=== PATIENT | female | born 1990 | race Two or more races ===

== ENCOUNTER 2018-07-24 13:53 | Emergency (ER) | payer MEDICAID ==
[~2018-07-24] VITALS: Ht 172.7 cm; Wt 90.7 kg
[2018-07-24 15:09] VITALS: BP 131/86
[2018-07-24] MEDS ORDERED: ACETAMINOPHEN 500 MG TAB PO ONE (15:30)
== END 2018-07-24 16:24 | disposition home or self-care (01) ==
LOC: ER 14:02
DX: O26.893 Other specified pregnancy related conditions, third trimester (principal); O24.913 Unspecified diabetes mellitus in pregnancy, third trimester; S30.0XXA Contusion of lower back and pelvis, initial encounter; Z3A.32 32 weeks gestation of pregnancy; V43.62XA Car passenger injured in collision with other type car in traffic accident, initial encounter; Y93.89 Activity, other specified; Y92.488 Other paved roadways as the place of occurrence of the external cause; Y99.8 Other external cause status; M53.3 Sacrococcygeal disorders, not elsewhere classified
CPT/HCPCS: 76805; 82962

== ENCOUNTER 2023-03-25 21:08 | Emergency (ER) | payer MEDICAID ==
[~2023-03-25] VITALS: Ht 165.1 cm; Wt 110.0 kg
[2023-03-25 21:11] VITALS: BP 120/68; PULSE 88; RESP 16; TEMP 98
[2023-03-25] MEDS ORDERED: EPIN0.1I11 IJ (22:52)
[2023-03-25 23:10] VITALS: O2SAT 98
== END 2023-03-25 23:10 | disposition home or self-care (01) ==
LOC: EDBD 21:08 → ER 21:08
DX: T78.40XA Allergy, unspecified, initial encounter (principal); T38.0X5A Adverse effect of glucocorticoids and synthetic analogues, initial encounter; Y92.89 Other specified places as the place of occurrence of the external cause

== ENCOUNTER 2023-10-26 17:34 | Emergency (ER) | payer MEDICAID ==
[~2023-10-26] VITALS: Ht 162.6 cm; Wt 101.3 kg
[~2023-10-26 17:34] MED LIST: EPIN0.1I11 IJ
[2023-10-26 19:15] VITALS: BP 132/86; PULSE 100; RESP 20; TEMP 98.2; O2SAT 97
[2023-10-26] MEDS ORDERED: CYCL-837 PO (20:57)
[2023-10-26] MEDS ORDERED: IBUP-1453 PO (20:57)
[2023-10-26] MEDS: CYCLOBENZAPRINE HCL 10 MG TAB PO ONE (21:30)
[2023-10-26] MEDS: IBUPROFEN 800 MG TAB PO ONE (21:31)
== END 2023-10-26 21:34 | disposition home or self-care (01) ==
LOC: ER 17:34
DX: S80.212A Abrasion, left knee, initial encounter (principal); S80.812A Abrasion, left lower leg, initial encounter; E11.9 Type 2 diabetes mellitus without complications; V43.52XA Car driver injured in collision with other type car in traffic accident, initial encounter; Y93.89 Activity, other specified; Y92.488 Other paved roadways as the place of occurrence of the external cause; Y99.8 Other external cause status